=== PATIENT | female | born 1965 | race Caucasian/White ===

== ENCOUNTER 2017-08-03 16:07 | Emergency (ER) | payer OTHER ==
--- NOTE | 2017-08-03 16:20 | CPEKG ---
Heart Rate: 92 RR Interval: 652 P-R Interval: 148 QRSD Interval: 100 QT Interval: 372 QTC Interval: [address]: [address]: -[address]: 49 EKG Severity - BORDERLINE ECG - EKG Impression: SINUS RHYTHM EKG Impression: PROBABLE LEFT ATRIAL ABNORMALITY EKG Impression: LEFT AXIS DEVIATION Electronically Signed By: Eron Egan 03-Aug-2017 16:27:16
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
[2017-08-03 17:23] VITALS: BP 123/74; PULSE 89; RESP 16; TEMP 97.5; O2SAT 97
== END 2017-08-03 17:24 | disposition home or self-care (01) ==
LOC: EDBD → EDUNIT#
DX: Z04.1 Encounter for examination and observation following transport accident (principal); Z87.891 Personal history of nicotine dependence; V89.2XXA Person injured in unspecified motor-vehicle accident, traffic, initial encounter; Y92.410 Unspecified street and highway as the place of occurrence of the external cause; Y99.8 Other external cause status; Y93.89 Activity, other specified